=== PATIENT | female | born 1980 | race Caucasian/White ===

== ENCOUNTER 2017-10-22 10:32 | Day surgery (SDC) | payer OTHER | END 2017-10-22 16:10 | disposition home or self-care (01) | LOC: AMB-ENDOS 10:32 | DX: D13.1 Benign neoplasm of stomach (principal); K29.80 Duodenitis without bleeding ==

== ENCOUNTER 2017-11-25 07:40 | Outpatient (CLI) | payer OTHER | END 2017-11-25 07:58 | disposition home or self-care (01) | LOC: NUCLEAR 07:40 | DX: I20.0 Unstable angina (principal); E78.2 Mixed hyperlipidemia | CPT/HCPCS: 78452; 93017; A9500; 93306 ==